=== PATIENT | male | born 1945 | race Caucasian/White ===

== ENCOUNTER → 2016-11-07 | Outpatient (CLI) | payer OTHER ==
[~2016-11-07] MED LIST: ADALAT CC90 MG PO; ADULT LOW DOSE81 MG PO; CELLCEPT500 MG PO; IRON325 PO; LASIX 40 MG TAB40 MG PO; LOSARTAN-HCTZ1 EAC2 PO; NOVOLOG100 UNIT/1 SQ; OS-CAL 500+D C1 EACH PO; PREDNISONE 5 MG5 M1 PO; PREVACID 30MG C30 M1 PO; PROGRAF1 MG PO; VITAMIN D1000 UNI1 PO; VITCB500GO PO; ZOCOR40 MG PO
== END ==
LOC: RAD 11:15
DX: I51.7 Cardiomegaly (principal); R05 Cough; J90 Pleural effusion, not elsewhere classified